=== PATIENT | male | born 1985 | race Caucasian/White ===

== ENCOUNTER 2020-02-28 15:29 | Inpatient (IN) | payer BC ==
[~2020-02-28] VITALS: Ht 185.4 cm; Wt 76.2 kg
--- NOTE | 2020-02-28 15:48 | NUR ---
patient came in to the er c/o fever, toothache since yesterday. On room air, breathing evenly and unlabored. connected to the monitor and pulse ox. kept comfortable, will continue to monitor accordingly.
[2020-02-28] MEDS ORDERED: IV NS 0.9% 1,000 ML IV ONE ×2 (16:00→18:00)
[2020-02-28] MEDS ORDERED: PIPERACILLIN /TAZOBACTAM 2.25 G in IV D5W 50 ML IV ONE (16:00)
--- NOTE | 2020-02-28 16:15 | NUR ---
Doug Haddad MD, DMD, CALLED [phone] [employer] [employer] CHOCOLATE REFINING ROLLER IS GABE
[2020-02-28 16:18] LABS: BASOPHILS % (AUTO) 0.4 % (0.0-2.0); HEMATOCRIT 44 % (39-51); HEMOGLOBIN 14.8 g/dL (13.5-17.5); LYMPHOCYTES # (AUTO) 0.7 /CMM (0.8-4.8); LYMPHOCYTES % (AUTO) 5.7 % (20.0-44.0); MEAN CORPUSCULAR HGB CONC 34 g/dl (31.0-36.0); MEAN CORPUSCULAR VOLUME 89 fL (80-96); MONOCYTES # (AUTO) 1.1 /CMM (0.1-1.30); MONOCYTES % (AUTO) 8.9 % (2.0-12.0); NEUTROPHILS # (AUTO) 10.6 /CMM (1.8-8.9); PLATELET COUNT (AUTO) 238 /CMM (150-450); RED BLOOD CELL COUNT(AUTO) 4.98 MIL/uL (4.5-6.0); WHITE BLOOD COUNT (AUTO) 12.5 K/uL (4.3-11.0)
--- NOTE | 2020-02-28 16:22 | NUR ---
MOVE SHEET SUBMITTED TO ADMITTING AND CALLED FOR ICU BED.
[2020-02-28 16:26] LABS: POTASSIUM 3.4 mmol/L (3.5-5.1)
[2020-02-28] MEDS ORDERED: IV NS 0.9% 250 ML IV ONE (16:47)
[2020-02-28] MEDS ORDERED: IOHEXOL-300 100 ML VIAL IV ONE (16:47)
[2020-02-28] MEDS ORDERED: CT SWABBABLE VALVE TRANS SET 1 EA INFUS.SET MC ONE (16:47)
--- NOTE | 2020-02-28 17:05 | NUR ---
back from [facility] on matty
[2020-02-28] MEDS ORDERED: IBUP-1953 PO (17:06)
--- NOTE | 2020-02-28 17:58 | NUR ---
Doug Haddad MD, DMD, CALLED [phone] [employer] POLYTECHNIC TEACHER IS GABE REPORTED THAT THE PT HAS AN INFECTION.
--- NOTE | 2020-02-28 19:12 | NUR ---
COVID SWAB DONE AND SENT TO LAB
--- NOTE | 2020-02-28 19:42 | NUR ---
ER TALKING TO AZUCENA DENG DNP REGARDING PT ADMISSION.
[2020-02-28] MEDS ORDERED: KETOROLAC TROMETHAMINE 15 MG/ML VIAL ONE (19:47)
[2020-02-28] MEDS ORDERED: KETOROLAC TROMETHAMINE INJ 30 MG/ML VIAL IV ONE (20:00)
--- NOTE | 2020-02-28 20:11 | NUR ---
REPORT GIVEN TO KEON FONTANEZ FOR JOSELUIS
--- NOTE | 2020-02-28 20:22 | NUR ---
PT TRANSPORTED TO UNIT ON [facility] WITH EMT AND RN AT BEDSIDE W/ ACLS PROTOCOL. NAD NOTED DURING TRANSPORT. PT AMBULATED FROM GURNEY TO BED W/O ASSIST
[2020-02-28 20:30] VITALS: BP 132/68
[2020-02-28 21:00] VITALS: BP 132/73
[2020-02-28] MEDS: IV NS 0.9% 1,000 ML IV PRN (21:27)
[2020-02-28] MEDS ORDERED: MAGNESIUM HYDROXIDE 30 ML UDC PO PRN (21:30)
[2020-02-28] MEDS ORDERED: ACETAMINOPHEN 325 MG TABLET PO PRN (21:30)
[2020-02-28] MEDS ORDERED: ONDANSETRON HCL/PF 4 MG/2 ML VIAL IVP PRN (21:30)
[2020-02-28] MEDS ORDERED: HYDROCODONE/APAP 5/325MG TABLET PO PRN (21:30)
[2020-02-28] MEDS ORDERED: MAG HYDROX/AL HYDROX/SIMETH 30 ML UDC PO PRN (21:30)
[2020-02-28] MEDS ORDERED: Z GUARD REMEDY 2 OZ OINT TP PRN (21:30)
[2020-02-28] MEDS ORDERED: ZOLPIDEM TARTRATE 5 MG TABLET PO PRN (21:30)
[2020-02-28] MEDS: ENOXAPARIN SODIUM 40 MG/0.4 ML DISP.SYRIN SQ SCH (21:35)
--- NOTE | 2020-02-28 21:44 | NUR ---
Rec'd pt in bed, A&Ox4. On RA, tolerating well. No SOB or resp distress noted. SR on tele monitor. LAC #18 patent and flushed. Dressing c/d/i. 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 No pain noted at this time. Dr. Ferrer at bedside. Pt ambulatory w/ steady gait. Physical assessment done with no skin issues noted. Stated wants to be Full Code. Safety measures in place. Will continue to monitor.
[2020-02-28] MEDS ORDERED: VANCOMYCIN 1 GM VIAL ONE (21:56)
[2020-02-28] MEDS ORDERED: PIPERACILLIN /TAZOBACTAM 3.375 G VIAL IV ONE (21:56)
[2020-02-28] MEDS: ZOSYN IVPB 3.375 G in IV D5W 50ml IV SCH (21:59)
[2020-02-28 22:00] VITALS: BP 125/72
[2020-02-28] MEDS ORDERED: VANCOMYCIN 500 MG VIAL ONE (22:00)
[2020-02-28] MEDS: VANCOMYCIN 1.5 GM in IV D5W 500ml IV SCH (22:31)
[2020-02-28 23:00] VITALS: BP 120/64
[2020-02-29] VITALS (24 sets, daily range): BP systolic 86–124; BP diastolic 45–81
[2020-02-29] MEDS ORDERED: PIPERACILLIN /TAZOBACTAM 3.375 G VIAL IV ONE (03:44)
[2020-02-29] MEDS: ZOSYN IVPB 3.375 G in IV D5W 50ml IV SCH (03:47)
[2020-02-29] MEDS: MORPHINE SULFATE INJ 2 MG/ML DISP.SYRIN IV PRN (03:48)
[2020-02-29 04:02] LABS: BASOPHILS % (AUTO) 0.2 % (0.0-2.0); HEMATOCRIT 41 % (39-51); HEMOGLOBIN 13.9 g/dL (13.5-17.5); LYMPHOCYTES # (AUTO) 1.4 /CMM (0.8-4.8); LYMPHOCYTES % (AUTO) 8.1 % (20.0-44.0); MEAN CORPUSCULAR HGB CONC 34 g/dl (31.0-36.0); MEAN CORPUSCULAR VOLUME 88 fL (80-96); MONOCYTES # (AUTO) 1.5 /CMM (0.1-1.30); MONOCYTES % (AUTO) 8.5 % (2.0-12.0); NEUTROPHILS # (AUTO) 14.4 /CMM (1.8-8.9); NEUTROPHILS % (AUTO) 83.2 % (43.0-81.0); PLATELET COUNT (AUTO) 211 /CMM (150-450); RED BLOOD CELL COUNT(AUTO) 4.66 MIL/uL (4.5-6.0); WHITE BLOOD COUNT (AUTO) 17.3 K/uL (4.3-11.0)
[2020-02-29 04:26] LABS: BILIRUBIN,TOTAL 1.8 mg/dL (0.2-1.0); CREATININE 1.1 mg/dL (0.6-1.3); MAGNESIUM 1.7 mg/dL (1.8-2.4); PHOSPHORUS 1.6 mg/dL (2.5-4.9); POTASSIUM 3.3 mmol/L (3.5-5.1); TOTAL PROTEIN, SERUM 6.6 g/dL (6.4-8.2)
[2020-02-29 04:30] LABS: THYROID STIMULATING HORMONE 0.432 uIU/mL (0.358-3.74)
[2020-02-29] MEDS ORDERED: VANCOMYCIN 1 GM VIAL ONE (05:54)
[2020-02-29] MEDS: VANCOMYCIN 1.5 GM in IV D5W 500ml IV SCH (05:55)
[2020-02-29] MEDS ORDERED: VANCOMYCIN 500 MG VIAL ONE (05:57)
--- NOTE | 2020-02-29 07:00 | NUR ---
OBSTETRICS TEACHER CLOSING NOTES: Pt remains stable throughout shift. On RA, tolerating well. No SOB or resp distress noted. No acute changes noted throughout shift. SR on tele monitor. NS infusing at 75ml/hr. All meds given as ordered. Safety measures in place. Will endorse to AM nurse for JOSELUIS.
--- NOTE | 2020-02-29 07:30 | NUR ---
RN OPENING NOTES RECEIVED PATIENT IN BED SLEEPING COMFORTABLE. A/O X 4. PATIENT IS ON RA , TOLERATING WELL, SAT IS 98%. NO SIGNS AND SYMPTOMS OF RESPIRATORY DISTRESS. PATIENT TELE READING IS SR @ 90'S. IV ACCESS LAC # 18 RUNNING NS 75ML/HR. SAFETY MEASURES IN PLACE, BED IS LOCKED AND IN LOWEST POSITION. CALL LIGHT IS WITHIN EASY REACH.WILL CONTINUE TO MONITOR.
[2020-02-29] MEDS: PANTOPRAZOLE 40 MG TABLET.DR PO SCH (08:12)
[2020-02-29] MEDS: PIPERACILLIN /TAZOBACTAM 3.375 G in IV D5W 100 ML IV SCH ×2 (09:27→18:00)
[2020-02-29] MEDS ORDERED: POTASSIUM CHLORIDE 20 MEQ TAB.PRT.SR PO ONE ×2 (12:00→13:30)
--- NOTE | 2020-02-29 12:00 | NUR ---
RN NOTES PER PT , UNABLE TO SWALLOW PO MEDS. ASKED MD IF WE CAN CHANGE PO TO A LIQUID FORM FOR POTASSIUM CHLORIDE TABLETS. CHARGE NURSE AND MD AWARE.
[2020-02-29] MEDS: Magnesium 1GM/D5W 100ML PREMIX 100 ML IV SCH ×2 (12:23→13:03)
[2020-02-29] MEDS ORDERED: Sodium Phosphate 15 MMOL in IV NS 0.9% 245 ML IV SCH (13:00)
--- NOTE | 2020-02-29 13:00 | NUR ---
RN NOTES CALLED PHARMACY TO REQUEST SODIUM PHOSPHATE, IS MISSING IN THE REFRIGERATOR.
[2020-02-29] MEDS ORDERED: POTASSIUM CHLORIDE 20 MEQ POWDER PACKET GT ONE (13:30)
[2020-02-29] MEDS: VANCOMYCIN 1.25 GM in IV D5W 250 ML IV SCH ×2 (13:57→21:38)
[2020-02-29] MEDS: IV NS 0.9% 1,000 ML IV PRN (14:05)
--- NOTE | 2020-02-29 19:15 | NUR ---
ICU/RN RECEIVED PATIENT CURRENTLY NO SIGN OF ANY DISTRESS A/O X4 PARAGUAYAN SPEAKER. PATIENT IS CURRENTLY ON FACETIME WITH PARTNER. PATIENT IS ON ROOM AIR WITH NO COMPLAINTS OF ANY SOB. MONITOR SHOWS SR WITH HR AT 95. ALL VITALS WNL. PATIENT DOES NOT COMPLAIN OF PAIN OR DIFFICULTY BREATHING. PATIENT IS ABLE TO AMBULATE TO RESTROOM WITH NO DIFFICULTY. IV'S ARE PATENT WITH NS RUNNING AT 75CC/HR. ALL SAFETY PRECAUTIONS APPLIED. CALL LIGHT IS WITHIN REACH. WILL CONTINUE TO MONITOR PATIENT.
--- NOTE | 2020-02-29 19:25 | NUR ---
RN CLOSING NOTES PATIENT IS IN BED AWAKE. A/O X 4. PATIENT IS ON RA , TOLERATING WELL, SAT IS 98%. NO SIGNS AND SYMPTOMS OF RESPIRATORY DISTRESS. PATIENT TELE READING IS SR @ 90'S. IV ACCESS LAC # 18 RUNNING NS 75ML/HR AND RAC # 18 -SL. SAFETY MEASURES IN PLACE, BED IS LOCKED AND IN LOWEST POSITION. CALL LIGHT IS WITHIN EASY REACH.WILL ENDORSE TO PM NURSE.
--- NOTE | 2020-02-29 20:00 | NUR ---
DR VIDHYA HAND AT BEDSIDE WITH PATIENT AND PATIENT'S PARTNER VIA Frequency.
[2020-02-29] MEDS ORDERED: ALPRAZOLAM 0.25 MG TABLET PO ONE (20:30)
[2020-02-29] MEDS: ENOXAPARIN SODIUM 40 MG/0.4 ML DISP.SYRIN SQ SCH (21:30)
--- NOTE | 2020-02-29 21:31 | NUR ---
LOVENOX SCHEDULED AT 2130 NOT ADMINISTERED DUE TO PATIENT SCHEDULED FOR PROCEDURE TOMORROW.
[2020-02-29] MEDS: DEXAMETHASONE SOD PHOSPHATE 10 MG/ML VIAL IV SCH (21:38)
[2020-02-29] MEDS ORDERED: ALPRAZOLAM 1 MG TABLET PO ONE (23:00)
[2020-03-01] VITALS (18 sets, daily range): BP systolic 76–119; BP diastolic 39–81
[2020-03-01] MEDS: PIPERACILLIN /TAZOBACTAM 3.375 G in IV D5W 100 ML IV SCH ×3 (01:27→18:28)
[2020-03-01 04:38] LABS: CALCIUM, SERUM 8.4 mg/dL (8.5-10.1); MAGNESIUM 2.5 mg/dL (1.8-2.4); PHOSPHORUS 2.1 mg/dL (2.5-4.9); POTASSIUM 3.9 mmol/L (3.5-5.1)
[2020-03-01 05:03] LABS: BASOPHILS % (AUTO) 0.1 % (0.0-2.0); EOSINOPHILS % (AUTO) 0.1 % (0.0-6.0); HEMATOCRIT 39 % (39-51); HEMOGLOBIN 13.2 g/dL (13.5-17.5); LYMPHOCYTES # (AUTO) 0.6 /CMM (0.8-4.8); LYMPHOCYTES % (AUTO) 4.6 % (20.0-44.0); MEAN CORPUSCULAR HGB CONC 34 g/dl (31.0-36.0); MEAN CORPUSCULAR VOLUME 89 fL (80-96); MONOCYTES # (AUTO) 0.5 /CMM (0.1-1.30); MONOCYTES % (AUTO) 3.8 % (2.0-12.0); NEUTROPHILS # (AUTO) 12.3 /CMM (1.8-8.9); NEUTROPHILS % (AUTO) 91.4 % (43.0-81.0); PLATELET COUNT (AUTO) 202 /CMM (150-450); RED BLOOD CELL COUNT(AUTO) 4.39 MIL/uL (4.5-6.0); WHITE BLOOD COUNT (AUTO) 13.5 K/uL (4.3-11.0)
[2020-03-01] MEDS: DEXAMETHASONE SOD PHOSPHATE 10 MG/ML VIAL IV SCH ×2 (05:35→13:00)
[2020-03-01] MEDS: VANCOMYCIN 1.25 GM in IV D5W 250 ML IV SCH ×3 (05:35→21:16)
--- NOTE | 2020-03-01 07:24 | NUR ---
ICU/RN PATIENT IN BED WITH NO SIGN OF ANY DISTRESS. UNEVENTFUL NIGHT. ENDORSED PATIENT TO MORNING SHIFT NURSE FOR JOSELUIS.
[2020-03-01] MEDS: PANTOPRAZOLE 40 MG TABLET.DR PO SCH ×2 (08:23→08:35)
--- NOTE | 2020-03-01 09:41 | NUR ---
RN OPENING NOTES: RECEIVED PT IN BED AWAKE A/O X4. PT IS ON RA 100% SAT, TELE SR, NO SIGNS OF RESPIRATORY DISTRESS, SOB AND NO COMPLAINS OF ANY PAIN. PT IS NPO SURGERY SCHEDULED FOR NOON. IV SITE INTACT, FLUSHED WELL. PTS NEEDS MET, SAFETY MEASURES MAINTAINED, CALL LIGHT WITHIN REACH WILL CONTINUE TO MONITOR.
[2020-03-01] MEDS: IV NS 0.9% 1,000 ML IV PRN (10:30)
[2020-03-01] MEDS ORDERED: MIDAZOLAM HCL 2 MG/2ML VIAL ONE ×2 (10:51→12:13)
--- NOTE | 2020-03-01 11:25 | NUR ---
RN NOTES: PT WAS TRANSFERRED TO OR. WILL CONTINUE TO MONITOR.
[2020-03-01] MEDS ORDERED: KETAMINE HCL (500MG/10ML) 50 MG/ML VIAL ONE (12:12)
[2020-03-01] MEDS ORDERED: SUCCINYLCHOLINE CHLORIDE 20 MG/ML VIAL ONE (12:14)
[2020-03-01] MEDS ORDERED: NEUTRA PHOS 1 POWD.PACKET NG ONE (12:30)
[2020-03-01] MEDS: Sodium Phosphate 15 MMOL in IV NS 0.9% 245 ML IV SCH ×3 (13:00→15:39)
[2020-03-01] MEDS ORDERED: FENTANYL PF 100MCG/2ML AMPUL ONE (13:28)
--- NOTE | 2020-03-01 13:29 | NUR ---
RN NOTES: PT STILL IN OR, VITAL SIGNS WILL RESUME ONCE PT COMES BACK FROM SURGERY.
--- NOTE | 2020-03-01 13:32 | NUR ---
RN NOTES: PTS 1300 MEDS WERE NOT ADMIN DUE TO PATIENT STILL BEING IN OR.
--- NOTE | 2020-03-01 14:46 | NUR ---
ORDERS CARRIED OUT POST SURGERY
[2020-03-01] MEDS: MORPHINE SULFATE INJ 2 MG/ML DISP.SYRIN IV PRN ×2 (15:37→21:05)
--- NOTE | 2020-03-01 15:54 | NUR ---
RN NOTES: PATIENT IS BACK FROM SURGERY, STABLE VITALS WNL, MINIUM BLEEDING FROM THE TEETH EXTRACTION, PT A/O X4, COMPLAINED OF PAIN RATING 9, MORPHINE WAS ADMINISTERED. WILL CONTINUE TO MONITOR.
[2020-03-01] MEDS: CHLORHEXIDINE GLUCONATE 15 ML UDC MM SCH (17:26)
--- NOTE | 2020-03-01 19:15 | NUR ---
CROSSWORD PUZZLE MAKER NOTE RECEIVED PATIENT UP IN BED RESTING, WATCHING TV, AWAKE, ALERT, ORIENTED X3. ABLE TO MAKE NEEDS KNOWN VIA WRITING. BREATHING IS EVEN AND NON LABORED, NO SOB NOTED AT THIS TIME. O2 SAT IS 98% AT THIS TIME VIA ROOM AIR. IV SITE ON RIGHT AC IS CLEAN DRY AND PATENT. IV FLUIDS NS 0.9% IS RUNNING AT 75 ML/HR. ON NPO DIET. ABLE TO AMBULATE. GAIT IS STEADY. SKIN IS INTACT. S/P TEETH EXTRACTION FOR CATHERINE'S ANGINA. SURGICAL WOUND DRESSING IS CLEAN, DRY, AND INTACT. IN NO APPARENT DISTRESS NOTED AT THIS TIME. CALL LIGHT IS WITHIN EASY REACH. WILL CONTINUE TO MONITOR.
--- NOTE | 2020-03-01 19:36 | NUR ---
Rn closing notes: PT IN BED AWAKE, NO COMPLAINS OF DIFFICULTY BREATHING, SOB, COMPLAINS OF MODERATE PAIN, PAIN MEDICATION ADMIN. NO ACUTE CHANGES AFTER THE PROCEDURE, VITALS WNL, SAFETY MEASURES MAITAINED CALL LIGHT WITHIN REACH ENDORSED TO PM NURSE FOR CONTINUATION OF CARE.
[2020-03-01] MEDS: ENOXAPARIN SODIUM 40 MG/0.4 ML DISP.SYRIN SQ SCH (21:17)
--- NOTE | 2020-03-01 21:35 | NUR ---
BILLING COORDINATOR NOTE LOVENOX MED HELD. NOTED ORAL BLEEDING. PATIENT IS S/P TEETH EXTRACTION.
[2020-03-02] VITALS (24 sets, daily range): BP systolic 90–123; BP diastolic 43–78
--- NOTE | 2020-03-02 01:00 | NUR ---
REMOTE SENSING SURVEYOR NOTE PATIENT IS RESTING IN BED AT THIS TIME. NO APPARENT DISTRESS. CALL LIGHT IS WITHIN REACH.
[2020-03-02] MEDS: PIPERACILLIN /TAZOBACTAM 3.375 G in IV D5W 100 ML IV SCH ×3 (01:03→17:17)
[2020-03-02] MEDS: MORPHINE SULFATE INJ 2 MG/ML DISP.SYRIN IV PRN ×2 (01:04→08:18)
[2020-03-02] MEDS: VANCOMYCIN 1.25 GM in IV D5W 250 ML IV SCH ×3 (05:15→22:30)
[2020-03-02] MEDS: IV NS 0.9% 1,000 ML IV PRN (06:00)
[2020-03-02 06:05] LABS: CALCIUM, SERUM 8.3 mg/dL (8.5-10.1); CREATININE 1.2 mg/dL (0.6-1.3); PHOSPHORUS 3.2 mg/dL (2.5-4.9); POTASSIUM 3.9 mmol/L (3.5-5.1)
--- NOTE | 2020-03-02 06:39 | NUR ---
COTTON PRESSER NOTE PATIENT REMAINED STABLE THROUGHOUT THE NIGHT. NO SIGNIFICANT CHANGES NOTED. PATIENT KEPT ON ROOM AIR. ALL DUE MEDS GIVEN ORDERED AND TOLERATED WELL. PATIENT IS KEPT CLEAN, DRY, AND COMFORTABLE. PATIENT IS MOTIVATED TO SELF CARE. VITALS WNL. WILL ENDORSE TO AM SHIFT RN.
--- NOTE | 2020-03-02 08:00 | NUR ---
rn notes received patient in the bed a/o x4, room air no acute respiratory distress, v/s taken bp 95/60,was complaining of pain on mouth 6/10 pain scale, administered morphine 2 ml/md iv push. infusing ns at 75 ml/hr on right ac area intact. patient has drain on lower chin, no output dressing intact, and dry., no swelling notes. patient able to communicate. and swallow easily.patient ambulatory using brp. call light within to reach. Will continue monitoring.
[2020-03-02] MEDS: CHLORHEXIDINE GLUCONATE 15 ML UDC MM SCH ×3 (08:17→16:41)
--- NOTE | 2020-03-02 12:47 | NUR ---
rn notes medication weer administered for pain effective, v/s wnl, infusing zosyn 25 ml/hr extended dose, patient resting .
--- NOTE | 2020-03-02 13:04 | NUR ---
RN NOTES SEEN PATIENT BY HOSPITALIST DR VIDHYA HAND NO NEW ORDER , AND CALLED AND GET DIET ORDER CLEAR LIQUID TODAY, SOFT DIET TOMORROW AND SURGEON WILL SEE PATIENT. ORDER TAKEN AND CARRIED OUT.
[2020-03-02] MEDS ORDERED: LIDOCAINE 1%-EPI 1:100,000 20 ML VIAL TP ONE (16:00)
--- NOTE | 2020-03-02 18:00 | NUR ---
RN NOTES PATIENT GETTING SELF BEDSIDE CARE AT THIS TIME,LINENS CHANGED, V/S WNL, REFUSED PAIN, ADMINISTERED SCHEDULED MEDICATION, NO ACUTE RESPIRATORY DISTRESS, INSERTED NEW IV ACCESS ON RIGHT FA INTACT #20, INFUSING ZOSYN 25 ML/HR EXTENDED DOSE PATENT. PATIENT AMBULATORY SELF CARE. CALL LIGHT WITHIN TO REACH. ENDORSED ONCOMING NURSE FOLLOW PLAN OF CARE.
--- NOTE | 2020-03-02 19:30 | NUR ---
RN OPENING NOTE RECEIVED PT IN BED AWAKE A/O X4 WITH HOB IN SEMI-FOWLERS POSITION. PT IS ON RA SAT 99%, ON TELE MONITOR SR, NO SIGNS OF RESPIRATORY DISTRESS OR SOB. DENIES PAIN AT THIS TIME. IV TO RFA PATENT INTACT FLUSHED WELL. DRESSING TO NECK CLEAN, DRY AND INTACT, NO ORAL BLEEDING NOTED. BED LOCKED AND IN LOWEST POSITION, SAFETY MEASURES MAINTAINED, CALL LIGHT WITHIN REACH WILL CONTINUE TO MONITOR PATIENT.
[2020-03-02] MEDS: ENOXAPARIN SODIUM 40 MG/0.4 ML DISP.SYRIN SQ SCH (21:21)
[2020-03-03] VITALS (17 sets, daily range): BP systolic 91–121; BP diastolic 43–78
[2020-03-03] MEDS: PIPERACILLIN /TAZOBACTAM 3.375 G in IV D5W 100 ML IV SCH ×3 (02:00→17:12)
[2020-03-03 04:32] LABS: BASOPHILS % (AUTO) 0.1 % (0.0-2.0); EOSINOPHILS % (AUTO) 0.1 % (0.0-6.0); HEMATOCRIT 37 % (39-51); HEMOGLOBIN 12.4 g/dL (13.5-17.5); LYMPHOCYTES # (AUTO) 2.1 /CMM (0.8-4.8); MEAN CORPUSCULAR HGB CONC 33 g/dl (31.0-36.0); MEAN CORPUSCULAR VOLUME 89 fL (80-96); MONOCYTES # (AUTO) 1.4 /CMM (0.1-1.30); MONOCYTES % (AUTO) 8.4 % (2.0-12.0); NEUTROPHILS # (AUTO) 12.9 /CMM (1.8-8.9); NEUTROPHILS % (AUTO) 78.4 % (43.0-81.0); PLATELET COUNT (AUTO) 350 /CMM (150-450); RED BLOOD CELL COUNT(AUTO) 4.21 MIL/uL (4.5-6.0); WHITE BLOOD COUNT (AUTO) 16.5 K/uL (4.3-11.0)
[2020-03-03 04:59] LABS: CALCIUM, SERUM 8.3 mg/dL (8.5-10.1); CREATININE 1.4 mg/dL (0.6-1.3); MAGNESIUM 2.4 mg/dL (1.8-2.4); PHOSPHORUS 3.4 mg/dL (2.5-4.9); POTASSIUM 3.7 mmol/L (3.5-5.1)
[2020-03-03] MEDS: VANCOMYCIN 1.25 GM in IV D5W 250 ML IV SCH (06:00)
--- NOTE | 2020-03-03 06:52 | NUR ---
RN CLOSING NOTE PT IN BED ASLEEP,SR ON TELE MONITOR REMAINS ON RA O2 SAT 97%, NO SIGNS OF RESPIRATORY DISTRESS OR SOB. DENIED PAIN THROUGHOUT SHIFT. IV TO RFA PATENT INTACT FLUSHED WELL. DRESSING TO NECK KEPT CLEAN, DRY AND INTACT, NO ORAL BLEEDING NOTED. BED LOCKED AND IN LOWEST POSITION, SAFETY MEASURES MAINTAINED, CALL LIGHT WITHIN REACH. ENDORSED TO AM RN FOR JOSELUIS
--- NOTE | 2020-03-03 08:00 | NUR ---
received pt from restaurant shift leader, a/o x4, SR, SB, RA lungs are clear, no edema, sat well, tolerates diet, BRP, submandibular drain and dressing intact, no swelling noted, v/s stable, no pain, pt turns and repositions by himself.
[2020-03-03] MEDS: CHLORHEXIDINE GLUCONATE 15 ML UDC MM SCH ×3 (08:07→17:12)
[2020-03-03] MEDS: PANTOPRAZOLE 40 MG TABLET.DR PO SCH (08:08)
--- NOTE | 2020-03-03 16:16 | NUR ---
pt is resting in the bed, a/o x4, SR, SB, RA sat well, tolerates diet, BRP, v/s stable, no pain, pt cleaned, changed and repositioned by himself.
--- NOTE | 2020-03-03 19:30 | NUR ---
RN OPENING NOTES Received the client resting in bed. A/O x4. Client is cooperative and positive about self. no s/s of distress noted, the client denies pain at this time. The client is independent for all ADLs. All safety mechanisms in place will continue to monitor.
[2020-03-03] MEDS: ENOXAPARIN SODIUM 40 MG/0.4 ML DISP.SYRIN SQ SCH (21:52)
--- NOTE | 2020-03-04 | NUR ---
client remains stable at this time. dressing change performed. client is cooperative and very thankful for the treatment. The client refused his pain medication. Will continue to monitor the client.
[2020-03-04] MEDS: PIPERACILLIN /TAZOBACTAM 3.375 G in IV D5W 100 ML IV SCH ×2 (02:25→09:03)
[2020-03-04 05:00] VITALS: BP 110/63
[2020-03-04 06:51] LABS: BASOPHILS % (AUTO) 0.2 % (0.0-2.0); EOSINOPHILS % (AUTO) 0.9 % (0.0-6.0); HEMATOCRIT 41 % (39-51); HEMOGLOBIN 13.4 g/dL (13.5-17.5); LYMPHOCYTES % (AUTO) 17.8 % (20.0-44.0); MEAN CORPUSCULAR HGB CONC 33 g/dl (31.0-36.0); MEAN CORPUSCULAR VOLUME 89 fL (80-96); MONOCYTES # (AUTO) 1.2 /CMM (0.1-1.30); MONOCYTES % (AUTO) 10.7 % (2.0-12.0); NEUTROPHILS # (AUTO) 7.8 /CMM (1.8-8.9); NEUTROPHILS % (AUTO) 70.4 % (43.0-81.0); PLATELET COUNT (AUTO) 384 /CMM (150-450); RED BLOOD CELL COUNT(AUTO) 4.55 MIL/uL (4.5-6.0); WHITE BLOOD COUNT (AUTO) 11.1 K/uL (4.3-11.0)
--- NOTE | 2020-03-04 07:31 | NUR ---
MS RN OPENING NOTES RECEIVED PATIENT IN BED, AWAKE, A/O X4. PATIENT BREATHING ON ROOM AIR; BREATHING IS EVEN AND UNLABORED; NO SOB AT THIS TIME. NO COMPLAINS OF PAIN. RFA IV ACCESS G #20 PRESENT AND INTACT RUNNING NS AT 75 MLS/HR. DRESSING CLEAN AND INTACT. SAFETY PRECAUTIONS IN PLACE; BED IN LOW POSITION AND LOCKED, RAILS UP X2, CALL LIGHT WITHIN REACH. WILL CONTINUE TO MONITOR PATIENT.
[2020-03-04 08:00] VITALS: BP 108/68
[2020-03-04] MEDS: CHLORHEXIDINE GLUCONATE 15 ML UDC MM SCH ×2 (08:09→12:52)
[2020-03-04] MEDS: PANTOPRAZOLE 40 MG TABLET.DR PO SCH (08:09)
[2020-03-04 08:28] LABS: CALCIUM, SERUM 8.6 mg/dL (8.5-10.1); CREATININE 1.3 mg/dL (0.6-1.3); MAGNESIUM 2.3 mg/dL (1.8-2.4); PHOSPHORUS 4.3 mg/dL (2.5-4.9); POTASSIUM 3.3 mmol/L (3.5-5.1)
[2020-03-04] MEDS ORDERED: CHLO473M2 MM (09:40)
[2020-03-04] MEDS ORDERED: IBUP-1955 PO (09:40)
[2020-03-04] MEDS ORDERED: AMPI3VIA IJ (09:40)
[2020-03-04] MEDS ORDERED: HYDR-4354 PO (09:40)
[2020-03-04] MEDS ORDERED: POTASSIUM CHLORIDE 20 MEQ TAB.PRT.SR PO ONE (10:00)
[2020-03-04] MEDS ORDERED: POTASSIUM CHLORIDE 20 MEQ TAB.PRT.SR PO SCH (11:00)
[2020-03-04 12:00] VITALS: BP 109/69
--- NOTE | 2020-03-04 14:16 | NUR ---
MS SLEEVE SEPARATOR NOTES PATIENT DISCHARGED HOME IN MEDICALLY STABLE CONDITION. BREATHING ON ROOM AIR; NO SOB PRESENT. NO COMPLAINS OF PAIN DURING SHIFT. ALL DISCHARGE DOCUMENTATIONS PREPARED AND SIGNED BY THE PATIENT. TEACHING PROVIDED REGARDING MEDICATIONS AND THE USE OF MIDLINE THAT PATIENT HAD INSERTED IN ORDER TO CONTINUE MEDICATIONS AT HOME; PATIENT VERBALIZED UNDERSTANDING. BELONGINGS ACCOUNTED FOR AND VALUABLES FORM SIGNED WELL. PATIENT LEFT THE FLOOR ACCOMPANIED BY RN AT 1325 AND PICKED UP IN A PRIVATE CAR BY THE .
== END 2020-03-04 13:35 | disposition home health service (06) | DRG 138 ==
LOC: ER 15:33 → ICU 19:57 → MEDSG1 03-03 17:55
PROVIDERS: ADMIT Hospitalist; ATTEND Nurse Practitioner Acute Care
PROC: 0CTX0Z1 Resection of Lower Tooth, Multiple, Open Approach (ICD-10-PCS; principal; 2020-03-02)
PROC: 0J910ZZ Drainage of Face Subcutaneous Tissue and Fascia, Open Approach (ICD-10-PCS; principal; 2020-03-02)
PROC: 05H933Z Insertion of Infusion Device into Right Brachial Vein, Percutaneous Approach (ICD-10-PCS; 2020-03-04)
DX: K12.2 Cellulitis and abscess of mouth (principal); D72.829 Elevated white blood cell count, unspecified; K11.20 Sialoadenitis, unspecified; T38.0X5A Adverse effect of glucocorticoids and synthetic analogues, initial encounter; Y92.89 Other specified places as the place of occurrence of the external cause; E87.6 Hypokalemia; E83.39 Other disorders of phosphorus metabolism; E83.42 Hypomagnesemia; E80.6 Other disorders of bilirubin metabolism; K02.9 Dental caries, unspecified; K04.7 Periapical abscess without sinus; K01.1 Impacted teeth
CPT/HCPCS: 36415; 70487-TC; 70491-TC; 71045-TC; 80048-TC; 80053-TC; 80061-TC; 80202-TC; 83605-TC; 83735-TC; 84100-TC; 84443-TC; 85025-TC; 85610-TC; 87040-TC; 87070-TC; 87081-TC; 88300-TC; A6403; A9563; C9803-CS; G0378; J0330; J1100; J1650; J1885; J2250; J2270; J2405; J2543; J2704; J3010; J3370; J3475; J3490; J7030; J7050; J7060; Q9967